=== PATIENT | female | born 2000 | race African-American/Black ===

== ENCOUNTER 2022-05-20 22:52 | Inpatient (IN) | payer OTHER ==
[2022-05-20 23:21] VITALS: BMI 38.9
[2022-05-20] MEDS ORDERED: Promethazine HCl 25 MG/ML VIAL IM PRN (23:41)
[2022-05-20] MEDS ORDERED: Boostrix 0.5 ML (Tdap) VIAL (>/=7 yrs of age) IM ONE (23:41)
[2022-05-20] MEDS ORDERED: Milk Of Magnesia 30 ML UDCUP PO PRN (23:41)
[2022-05-20] MEDS ORDERED: hydrALAZINE 20 MG/ML VIAL SLOW IVP PRN ×2 (23:41)
[2022-05-20] MEDS ORDERED: Ondansetron PF 4 MG/2 ML Vial IVP PRN (23:41)
[2022-05-20] MEDS ORDERED: Bisacodyl 10 MG SUPP PR PRN (23:41)
[2022-05-20] MEDS ORDERED: Misoprostol 200 MCG TAB VAG PRN (23:46)
[2022-05-20] MEDS ORDERED: CEFAZOLIN 2 GM VIAL ONE (23:56)
[2022-05-21] MEDS ORDERED: CEFAZOLIN 2 GM in Sodium Chloride 0.9% 100 ML IVPB SCH
[2022-05-21 00:25] LABS: Glucose 116 mg/dL (70-105)
[2022-05-21 00:27] LABS: Hemoglobin 13.1 g/dL (12.0-15.5); Mean Corpuscular HGB CONC 33.2 g/dL (32.0-36.0); Mean Corpuscular Hemoglobin 27.3 pg (27.0-33.0); Mean Corpuscular Volume 82.5 fl (81.6-98.3); Mean Platelet Volume 10.2 fl (7.4-10.4); Platelet Count 287 10x3/uL (150-450); RBC Distribution Width 14.2 % (11.5-14.5); Red Blood Cell (RBC) Count 4.79 10x6/uL (3.90-5.03); White Blood Cell (WBC) Count 6.3 10x3/uL (3.5-10.5)
[2022-05-21] MEDS ORDERED: Carboprost 250 MCG/ML AMP IM PRN (00:27)
[2022-05-21] MEDS ORDERED: Lidocaine 1% (PF) 30 ML VIAL SC PRN (00:27)
[2022-05-21] MEDS ORDERED: Diphenoxylate HCl/Atropine Tablet PO PRN ×2 (00:27→12:42)
[2022-05-21] MEDS ORDERED: Lactated Ringer's 1,000 ML IV SCH ×2 (00:30→02:15)
[2022-05-21] MEDS ORDERED: NS w/ Oxytocin 30 units 500 ML IV SCH ×2 (00:30→13:59)
[2022-05-21 00:51] LABS: Syphilis Antibody Nonreactive (Nonreactive); Syphilis Antibody Index 0.46 S/CO (<1.00 Non-Reactive)
[2022-05-21 00:52] LABS: HBSAg Index 0.16 S/CO (0-0.99); Hep B Surf Ag Non-Reactive S/CO (NonReactive)
[2022-05-21] MEDS: Fentanyl 2 mcg/Bupivacaine 0.1% Cassette 100 ML EPIDURAL SCH ×2 (01:16→07:02)
[2022-05-21] MEDS ORDERED: Naloxone HCl 0.4 mg/ml Vial IVP PRN ×2 (01:21)
[2022-05-21] MEDS ORDERED: Ondansetron PF 4 MG/2 ML Vial IVP PRN ×2 (01:21→13:59)
[2022-05-21] MEDS ORDERED: ePHEDrine Sulfate 50 MG/10 ML VIAL SLOW IVP PRN (01:21)
[2022-05-21] MEDS ORDERED: Lactated Ringer's 500 ML IV PRN (01:21)
[2022-05-21] MEDS ORDERED: Acetaminophen 325 MG TAB PO PRN (01:21)
[2022-05-21] MEDS ORDERED: diphenhydrAMINE 50 MG/ML VIAL IVP PRN (01:21)
[2022-05-21] MEDS ORDERED: Promethazine HCl 25 MG/ML VIAL IM PRN ×2 (01:21→13:59)
[2022-05-21] MEDS ORDERED: Moisturizing Cream (Eucerin) 113 GM JAR TOP PRN (01:21)
[2022-05-21] MEDS ORDERED: Communication Order-Pharmacy FS SCH (01:30)
[2022-05-21] MEDS ORDERED: Dextrose 5%-Lactated Ringers 1,000 ML IV SCH (02:15)
[2022-05-21 03:18] LABS: SARS-CoV-2 NAA Rapid Test Not Detected (NotDetected)
[2022-05-21 03:21] LABS: Creatinine, Urine 146.52 mg/dL (47-110)
[2022-05-21 04:36] LABS: ALT (SGPT) 37 U/L (8-55); AST (SGOT) 25 U/L (5-34); Albumin 3.4 g/dL (3.5-5.0); Alkaline Phosphatase 145 U/L (40-100); Anion Gap 16 mmol/L (10-20); BUN (Urea Nitrogen) 12 mg/dL (7.0-18.7); Bilirubin, Total 0.4 mg/dL (0.2-1.2); Calc. Creatinine Clearance 228 mL/min (70-130); Calcium 9.1 mg/dL (7.8-10.44); Carbon Dioxide 18 mmol/L (22-29); Chloride 109 mmol/L (98-107); Estimated GFR 130; Globulin 3.5 g/dL (2.4-3.5); Glucose 119 mg/dL (70-105); Potassium 4.3 mmol/L (3.5-5.1); Protein, Total 6.9 g/dL (6.0-8.3); Sodium 139 mmol/L (136-145)
[2022-05-21] MEDS ORDERED: Ibuprofen 800 MG TAB PO SCH (06:00)
[2022-05-21 06:21] LABS: Hemoglobin 11.3 g/dL (12.0-15.5); Mean Corpuscular Hemoglobin 27.5 pg (27.0-33.0); Mean Corpuscular Volume 80.8 fl (81.6-98.3); Mean Platelet Volume 11.5 fl (7.4-10.4); RBC Distribution Width 14.1 % (11.5-14.5); Red Blood Cell (RBC) Count 4.11 10x6/uL (3.90-5.03); White Blood Cell (WBC) Count 8.5 10x3/uL (3.5-10.5)
[2022-05-21 06:49] LABS: MDiff Complete? YES; Platelet Count 274 10x3/uL (130-400)
[2022-05-21 06:52] LABS: Lymphocytes 30 % (28-48); Monocytes 6 % (0-4); Neutrophil 64 % (31-61)
[2022-05-21 06:53] LABS: Platelet Morphology Comment Appears Adequate; RBC Morphology Normal
[2022-05-21] MEDS ORDERED: Bupivacaine 0.25% HCL 30 ML VIAL ONE (08:00)
[2022-05-21] MEDS ORDERED: Ferrous Sulfate 325 MG TAB PO SCH (08:00)
[2022-05-21] MEDS ORDERED: CEFAZOLIN 1 GM in Sodium Chloride 0.9% 100 ML IVPB SCH (08:00)
[2022-05-21] MEDS ORDERED: Docusate 100 MG CAP PO SCH (09:00)
[2022-05-21] MEDS: NS w/ Oxytocin 30 units 500 ML IV SCH ×2 (11:17→12:50)
[2022-05-21] MEDS ORDERED: Lidocaine 1% (PF) 30 ML VIAL ONE (11:55)
[2022-05-21] MEDS ORDERED: Misoprostol 200 MCG TAB ONE (12:03)
[2022-05-21] MEDS ORDERED: Methylergonovine 0.2 MG/ML VIAL ONE (12:03)
[2022-05-21] MEDS ORDERED: Carboprost 250 MCG/ML AMP ONE (12:03)
[2022-05-21] MEDS ORDERED: Misoprostol 200 MCG TAB VAG PRN (13:59)
[2022-05-21] MEDS ORDERED: Lanolin Ointment 7 GM TUBE TOP PRN (13:59)
[2022-05-21] MEDS ORDERED: Preparation H Ointment 28 GM TUBE PR PRN (13:59)
[2022-05-21] MEDS ORDERED: Benzocaine-Menthol 82.5 ML CAN TOP PRN (13:59)
[2022-05-21] MEDS ORDERED: Milk Of Magnesia 30 ML UDCUP PO PRN (13:59)
[2022-05-21] MEDS ORDERED: hydrALAZINE 20 MG/ML VIAL SLOW IVP PRN (13:59)
[2022-05-21] MEDS ORDERED: diphenhydrAMINE 25 MG CAP PO PRN (13:59)
[2022-05-21] MEDS ORDERED: Boostrix 0.5 ML (Tdap) VIAL (>/=7 yrs of age) IM ONE (13:59)
[2022-05-21] MEDS ORDERED: Bisacodyl 10 MG SUPP PR PRN (13:59)
[2022-05-21] MEDS: Ibuprofen 800 MG TAB PO SCH ×2 (14:00→22:48)
[2022-05-21] MEDS ORDERED: HumaLOG 300 UNITS/3 ML VIAL SC PRN (14:40)
[2022-05-21] MEDS ORDERED: Dextrose 50% Abboject 50 ML SYRINGE SLOW IVP PRN (14:40)
[2022-05-21] MEDS ORDERED: Dextrose 5% in Water 1,000 ML IV PRN (14:40)
[2022-05-21] MEDS: Ferrous Sulfate 325 MG TAB PO SCH (18:16)
[2022-05-21] MEDS: HumaLOG 300 UNITS/3 ML VIAL SC SCH (19:13)
[2022-05-21] MEDS ORDERED: Lantus 1000 UNITS/10 ML VIAL SC SCH (21:00)
[2022-05-21] MEDS: Docusate 100 MG CAP PO SCH (22:48)
[2022-05-22] MEDS: Ibuprofen 800 MG TAB PO SCH ×3 (06:22→21:15)
[2022-05-22] MEDS: Docusate 100 MG CAP PO SCH ×2 (08:35→21:15)
[2022-05-22] MEDS: Prenatal Vitamin 1 TAB PO SCH (08:35)
[2022-05-22] MEDS: HumaLOG 300 UNITS/3 ML VIAL SC SCH ×3 (08:36→16:52)
[2022-05-22] MEDS: Ferrous Sulfate 325 MG TAB PO SCH ×2 (08:39→16:52)
[2022-05-22] MEDS ORDERED: Lantus 1000 UNITS/10 ML VIAL SC SCH (21:00)
[2022-05-23] MEDS: Ibuprofen 800 MG TAB PO SCH (06:18)
[2022-05-23 07:25] VITALS: BP 110/59; TEMP 97.7
[2022-05-23] MEDS: Ferrous Sulfate 325 MG TAB PO SCH (08:12)
[2022-05-23] MEDS: HumaLOG 300 UNITS/3 ML VIAL SC SCH (08:22)
[2022-05-23] MEDS ORDERED: Lantus 1000 UNITS/10 ML VIAL SC SCH ×2 (09:00→21:00)
[2022-05-23] MEDS: Docusate 100 MG CAP PO SCH (09:40)
[2022-05-23] MEDS: Prenatal Vitamin 1 TAB PO SCH (09:40)
== END 2022-05-23 14:12 | disposition home or self-care (01) | DRG 805 ==
LOC: CSHLD/OP 22:52 → CSHLD 23:47 → UNDOADMIN 05-21 00:20 → CSHLD 05-21 14:50 → CSHPED 05-21 14:50
PROVIDERS: ADMIT Family Medicine; ATTEND Family Medicine
PROC: 10E0XZZ Delivery of Products of Conception, External Approach (ICD-10-PCS; principal; 2022-05-21)
PROC: 0W8NXZZ Division of Female Perineum, External Approach (ICD-10-PCS; 2022-05-21)
PROC: 0UQMXZZ Repair Vulva, External Approach (ICD-10-PCS; 2022-05-21)
DX: O42.02 Full-term premature rupture of membranes, onset of labor within 24 hours of rupture (principal); O24.02 Pre-existing type 1 diabetes mellitus, in childbirth; Z37.0 Single live birth; O36.63X0 Maternal care for excessive fetal growth, third trimester, not applicable or unspecified; Z3A.37 37 weeks gestation of pregnancy; Z20.822 Contact with and (suspected) exposure to COVID-19; O99.214 Obesity complicating childbirth; E66.9 Obesity, unspecified; E10.9 Type 1 diabetes mellitus without complications; O99.824 Streptococcus B carrier state complicating childbirth; Z79.4 Long term (current) use of insulin; Z88.0 Allergy status to penicillin; O76 Abnormality in fetal heart rate and rhythm complicating labor and delivery; O77.0 Labor and delivery complicated by meconium in amniotic fluid; O66.0 Obstructed labor due to shoulder dystocia; O71.82 Other specified trauma to perineum and vulva; O13.4 Gestational [pregnancy-induced] hypertension without significant proteinuria, complicating childbirth
CPT/HCPCS: 36415; 36416; 51701; 51702; 76815; 80053; 82570; 82947; 84156; 85025; 85027; 86780; 86850; 86900; 86901; 87340; 88307; 99285; J0690; J1815; J2590; J3490; J7120; J7999; S0020; U0002

== ENCOUNTER 2023-04-17 10:57 | Emergency (ER) | payer OTHER, SELFPAY ==
[2023-04-17 12:37] LABS: SARS-CoV-2 NAA Rapid Test Not Detected (NotDetected)
[2023-04-17] MEDS ORDERED: Ipratropium/Albuterol 3 ML NEB ONE (12:41)
== END 2023-04-17 14:01 | disposition home or self-care (01) ==
LOC: CSHERS 10:57
DX: J06.9 Acute upper respiratory infection, unspecified (principal); Z20.822 Contact with and (suspected) exposure to COVID-19
CPT/HCPCS: 71046; 87081; 87430; J7620

== ENCOUNTER 2023-05-25 19:49 | Emergency (ER) | payer SELFPAY ==
[2023-05-25 21:04] LABS: SARS-CoV-2 NAA Rapid Test Not Detected (NotDetected)
== END 2023-05-25 21:19 | disposition home or self-care (01) ==
LOC: CSHERS 19:49
DX: J06.9 Acute upper respiratory infection, unspecified (principal); R50.9 Fever, unspecified
CPT/HCPCS: 99284

== ENCOUNTER 2023-06-29 15:00 | Emergency (ER) | payer SELFPAY ==
[2023-06-29] MEDS ORDERED: Ibuprofen 200 MG TAB ONE (15:56)
[2023-06-29] MEDS ORDERED: Acetaminophen 500 MG TAB ONE (15:56)
[2023-06-29 15:59] LABS: SARS-CoV-2 NAA Rapid Test DETECTED (NotDetected)
== END 2023-06-29 16:39 | disposition home or self-care (01) ==
LOC: CSHERS 15:00
DX: U07.1 COVID-19 (principal); E10.9 Type 1 diabetes mellitus without complications
CPT/HCPCS: 99284

== ENCOUNTER 2023-07-03 15:03 | Emergency (ER) | payer SELFPAY ==
[2023-07-03] MEDS ORDERED: Dexamethasone 10 MG/ML VIAL ONE (16:47)
[2023-07-03] MEDS ORDERED: Ibuprofen 200 MG TAB ONE (16:47)
== END 2023-07-03 18:32 | disposition home or self-care (01) ==
LOC: CSHERS 15:03
DX: U07.1 COVID-19 (principal); E10.9 Type 1 diabetes mellitus without complications
CPT/HCPCS: 87081; 87430; 99284; J1100